=== PATIENT | female | born 1955 | race Caucasian/White ===

== ENCOUNTER 2019-01-21 09:36 | Day surgery (SDC) | payer OTHER ==
[~2019-01-21 09:36] MED LIST: BALANCED SALT SOLN OPH IRRIG 500 ML, GENTAMICIN 4 MG, EPINEPHrine 0.1 MG IRR
[2019-01-21] MEDS ORDERED: hydrALAzine 20 MG INJ IV (10:00)
[2019-01-21] MEDS ORDERED: LABETALOL HCL 20MG INJ IV (10:00)
[2019-01-21] MEDS ORDERED: OXYCODONE/ACETAMINOPHEN (5/325) TAB PO ×2 (10:00)
[2019-01-21] MEDS ORDERED: FENTAnyl 50 MCG/ML VIAL IV ×3 (10:00)
[2019-01-21] MEDS ORDERED: ONDANSETRON 4 MG INJ IV (10:00)
[2019-01-21] MEDS ORDERED: PROPOFOL 20 ML (10:48)
[2019-01-21] MEDS ORDERED: FENTAnyl 50 MCG/ML VIAL (10:48)
[2019-01-21] MEDS: MOXIFLOXACIN 0.5% 3 ML OPH OPER (11:10)
[2019-01-21] MEDS: DICLOFENAC 0.1% 2.5 ML OPH OPER (11:10)
[2019-01-21] MEDS: TROPICAMIDE 1% 15 ML OPH OPER (11:10)
[2019-01-21] MEDS ORDERED: DEXAMETHASONE 4 MG/ML 1 ML INJ (11:20)
[2019-01-21] MEDS: SOD CHLORIDE 0.9% 1,000 ML IV (11:21)
[2019-01-21] MEDS: CYCLOPENTOLATE/PHENYLEPH 2 ML OPH OPER (11:26)
[2019-01-21] MEDS ORDERED: DEXTROSE 50% 50 ML SYRINGE (11:34)
[2019-01-21] MEDS: CARBACHOL 0.01% 1.5 ML OPH INJ (11:36)
[2019-01-21] MEDS: DEXAMETHASONE 4 MG/ML 1 ML INJ (11:36)
[2019-01-21] MEDS: CEFAZOLIN 1 GM INJ (11:36)
[2019-01-21] MEDS: EPINEPHrine 1 MG INJ (11:37)
[2019-01-21] MEDS: LIDOCAINE 4% (MPF) 5 ML INJ (11:37)
[2019-01-21] MEDS: NA HYALURONATE/CHONDROITIN 0.5 ML SYG (11:38)
[2019-01-21] MEDS: TETRACAINE 0.5% 4 ML OPH (11:38)
[2019-01-21] MEDS: DEXTROSE 50% 50 ML SYRINGE IV (11:41)
== END 2019-01-21 13:45 | disposition home or self-care (01) ==
LOC: SDS 09:36
DX: H25.11 Age-related nuclear cataract, right eye (principal); I10 Essential (primary) hypertension; E78.00 Pure hypercholesterolemia, unspecified; E11.9 Type 2 diabetes mellitus without complications; Z79.84 Long term (current) use of oral hypoglycemic drugs
CPT/HCPCS: 66984; 82962